=== PATIENT | female | born 1945 | race Caucasian/White ===

== ENCOUNTER 2021-09-24 14:32 | Emergency (ER) | payer MEDICARE ==
[2021-09-24 18:55] LABS: HEMOGLOBIN 12.9 gm/dl (12.3-15.3); RED BLOOD COUNT 3.96 M/UL (4.00-5.10); WHITE BLOOD COUNT 12.8 K/UL (4.5-11.0)
[2021-09-24 19:08] LABS: BUN/CREATININE RATIO 12 (0-10)
[2021-09-24] MEDS ORDERED: NORFLEX 100 MG100 MG PO (20:41)
[2021-09-24] MEDS ORDERED: Voltaren Gel 1 % TOP (20:41)
== END 2021-09-24 20:54 | disposition home or self-care (01) ==
LOC: ER1 14:32
PROVIDERS: Physician Assistant Medical
DX: M54.2 Cervicalgia (principal); G89.29 Other chronic pain; E11.9 Type 2 diabetes mellitus without complications; E78.5 Hyperlipidemia, unspecified; I10 Essential (primary) hypertension; F17.210 Nicotine dependence, cigarettes, uncomplicated
CPT/HCPCS: 80053; 82550; 82553; 84484; 85025; 93005; 96374; 96375; 99283; J2270; J2405; J2930